=== PATIENT | male | born 1940 | race Caucasian/White ===

== ENCOUNTER 2024-08-30 09:01 | Emergency (ER) | payer MEDICARE, SELFPAY ==
[2024-08-30] VITALS (9 sets, daily range): BP systolic 147–179; BP diastolic 77–105; PULSE 87–102; RESP 17–25; O2SAT 96–97; BMI 27.1
--- NOTE | 2024-08-30 09:07 | DI.RAD.S_ITS ---
PROCEDURE: XR CHEST 1V INDICATIONS: increasing shortness of breath TECHNIQUE: One view of the chest was acquired. COMPARISON: None. FINDINGS: Surgical changes and devices: None. Lungs and pleura: Central pulmonary vascular prominence and interstitial prominence. No trace right pleural effusion.. Mediastinum: Mediastinal contours appear normal. Heart is mildly enlarged. Bones and chest wall: No suspicious bony lesions. Overlying soft tissues appear unremarkable. IMPRESSION: Cardiomegaly with central pulmonary vascular prominence and bilateral lung interstitial prominence concerning for CHF/fluid overload. Dictated by: Vickie Gramajo MD, PhD on 08/30/2024 at 9:29 Approved by: Vickie Gramajo MD, PhD on 08/30/2024 at 9:30
--- NOTE | 2024-08-30 09:07 | EKG_ITS ---
[facility] [address] [place] [address] Test Date: 2024-08-30 Pat Name: Shankar Curry Department: [facility] Room: Gender: Male Sales Intern: ANABELA : 1940 Requested By: Order Number: [id number] Reading MD: Steve Michelle Measurements Intervals [place] Rate: 90 P: 16 NV: 168 QRS: -20 QRSD: 100 T: 19 QT: 422 QTc: 516 Interpretive Statements Normal sinus rhythm Minimal voltage criteria for LVH, may be normal variant ( R in aVL ) Septal infarct , age undetermined Prolonged QT Electronically Signed On 08-30-2024 18:37:02 PST by Steve Michelle
[2024-08-30 09:33] LABS: Add Manual Diff / Slide Review NO; Basophils Absolute Auto 100 /uL (0-100); Basophils Percent Auto 0.8 % (0-2); Eosinophils Absolute Auto 300 /uL (0-450); Eosinophils Percent Auto 3.2 % (2-4); Hematocrit 37.4 % (41-53); Lymphocytes Absolute Auto 1900 /uL (1100-4500); Mean Corpuscular HGB Conc 32.1 % (30-36); Mean Corpuscular Volume 68.6 fL (80-100); Monocytes Absolute Auto 1000 /uL (0-900); Monocytes Percent Auto 10.1 % (3-14); Neutrophils Absolute Auto 6700 /uL (1500-7000); Neutrophils Percent Auto 66.9 % (50-75); Platelet Count 217 X10^3/uL (150-400); Red Blood Cell Count 5.45 X10^6/uL (4.5-5.9); Red Cell Distribution Width 17.9 % (11.6-14.8)
[2024-08-30 09:42] LABS: Alanine Aminotransferase 27 IU/L (<50); Albumin 4.4 g/dL (3.5-5.0); Albumin Globulin Ratio 1.2 (1.0-2.8); Alkaline Phosphatase 82 U/L (38-126); Aspartate Aminotransferase 38 IU/L (17-59); BUN Creatinine Ratio 17.8 (6-22); Bilirubin Total 1.5 mg/dL (0.2-1.3); Blood Urea Nitrogen 16 mg/dL (9-20); Carbon Dioxide 26 mmol/L (22-32); Chloride 104 mmol/L (98-107); Creatine Kinase 42 U/L (55-170); Estimated Glomerular Filt Rate > 60 mL/min (>60); Globulin 3.8 g/dL (1.7-4.1); Glucose 119 mg/dL (80-110); HEMOLYSIS < 15 (0-50); Lipase 133 U/L (23-300); Potassium 3.9 mmol/L (3.4-5.1); Sodium 136 mmol/L (137-145); Total Protein 8.2 g/dL (6.3-8.2)
[2024-08-30 09:53] LABS: Troponin I 0.036 ng/mL (0.01-0.034)
[2024-08-30 09:55] LABS: Microcytosis 3+; Poikilocytosis 1+
--- NOTE | 2024-08-30 10:01 | ED_ITS ---
HPI - General Adult General Chief complaint: Abdominal Pain Stated complaint: Upset stomach; SOB; Fuzzy headed Time Seen by Provider: 08/30/24 09:06 Source: patient Mode of arrival: Family Vehicle History of Present Illness HPI narrative: Patient was an 84-year-old male. Does have history of an enlarged prostate. Is here for evaluation of a proximally 2 weeks of increased upset stomach and abdominal distention. No diarrhea. No constipation. No recent antibiotics. He does urinate frequently but this is baseline for him. He does feel like he is emptying his bladder. He was also reporting shortness of breath that has been going on for the past 2 weeks as well and also reports a ?fuzzy head? feeling that has been going on for several weeks. No chest pain. No cough. He occasionally does have some wheezing. Has a history of high blood pressure. No underlying lung pathology such as COPD or asthma. He was visiting the local area. Related Data Previous Rx's Medication Instructions Recorded furosemide 20 mg tablet (Lasix) 20 mg PO DAILY #30 tabs 08/30/24 Allergies Allergy/AdvReac Type Severity Reaction Status Date / Time Penicillins Allergy Verified 08/30/24 09:19 Review of Systems Review of Systems ROS Unobtainable: All systems reviewed & are unremarkable except as noted in HPI and below Patient History Social History Smoking Status: Never smoker Smoking Status: Never smoker Exam Initial Vital Signs Initial Vital Signs: Vital Signs Pulse Rate 102 H 08/30/24 09:14 Respiratory Rate 20 08/30/24 09:14 Blood Pressure 179/105 H 08/30/24 09:14 Pulse Oximetry 96 08/30/24 09:14 Oxygen Delivery Method Room Air 08/30/24 09:14 Const General: cooperative, comfortable and No ill appearing HENMT Head: normal to inspection and normocephalic Resp Effort & Inspection: normal respiratory effort Auscultation: clear to auscultation bilaterally Cardio Rate: regular rate Rhythm: regular rhythm Skin General: no rashes or lesions noted Neuro General: patient alert, patient awake, patient oriented x3 and moves all extremities Extrem General: capillary refill normal Course Orders Ordered: ED Orders 08/30/24 09:07 XR chest 1V Stat EKG-12 Lead Stat 08/30/24 09:17 Complete Blood Count AUTO DIFF Stat Comprehensive Metabolic Panel Stat Lipase Stat Troponin & CK Cardiac Panel Stat 08/30/24 10:01 CT abdomen pelvis w con Stat 08/30/24 11:09 BNP [NT-proBNP (BNP-Adult 18+)] Stat Troponin & CK Cardiac Panel Stat Vital Signs Vital signs: Vital Signs - 8 hr 08/30/24 09:14 08/30/24 09:15 08/30/24 09:16 Pulse Rate 102 H 101 H Respiratory Rate 20 20 Blood Pressure 179/105 H 179/105 H Pulse Oximetry 96 97 Oxygen Delivery Method Room Air Room Air 08/30/24 09:16 08/30/24 09:30 08/30/24 09:30 Pulse Rate 101 H 93 H Respiratory Rate 24 17 Blood Pressure 154/91 H Pulse Oximetry 97 96 Oxygen Delivery Method Medical Decision Making Lab Data Lab results reviewed: Yes I reviewed the patient's lab results. 08/30/24 09:17 08/30/24 09:17 Labs: Lab Results 08/30/24 08/30/24 Range/Units 09:17 11:09 WBC 10.0 (4.5-11.0) X10^3/uL RBC 5.45 (4.5-5.9) X10^6/uL Hgb 12.0 L (13.5-17.5) g/dL Hct 37.4 L (41-53) % MCV 68.6 L (80-100) fL MCH 22.0 L (26-34) PG MCHC 32.1 (30-36) % RDW 17.9 H (11.6-14.8) % Plt Count 217 (150-400) X10^3/uL Neut % (Auto) 66.9 (50-75) % Lymph % (Auto) 19.0 L (25-40) % [place] % (Auto) 10.1 (3-14) % Eos % (Auto) 3.2 (2-4) % Baso % (Auto) 0.8 (0-2) % Neut # (Auto) 6700 (2266-1183) /uL Lymph # (Auto) 1900 (9251-7941) /uL [place] # (Auto) 1000 H (0-900) /uL Eos # (Auto) 300 (0-450) /uL Baso # (Auto) 100 (0-100) /uL RBC Morphology Not Reportable Poikilocytosis 1+ H Microcytosis 3+ H Sodium 136 L (137-145) mmol/L Potassium 3.9 (3.4-5.1) mmol/L Chloride 104 (98-107) mmol/L Carbon Dioxide 26 (22-32) mmol/L BUN 16 (9-20) mg/dL Creatinine 0.90 (0.66-1.25) mg/dL Estimated GFR > 60 (>60) mL/min BUN/Creatinine Ratio 17.8 (6-22) Glucose 119 H (80-110) mg/dL Calcium 9.0 (8.4-10.2) mg/dL Total Bilirubin 1.5 H (0.2-1.3) mg/dL AST 38 (17-59) IU/L ALT 27 (<50) IU/L Alkaline Phosphatase 82 (38-126) U/L Total Creatine Kinase 42 L 39 L (55-170) U/L Troponin I 0.036 H 0.030 (0.01-0.034) ng/mL NT-Pro-B Natriuret Pep 6110 H (<450) pg/mL Total Protein 8.2 (6.3-8.2) g/dL Albumin 4.4 (3.5-5.0) g/dL Globulin 3.8 (1.7-4.1) g/dL Albumin/Globulin Ratio 1.2 (1.0-2.8) Lipase 133 (23-300) U/L Urine Dip Bedside Urine Glucose Negative Bedside Urine Bilirubin - Negative Bedside Urine Ketone - Negative Urine Specific [place] 1.015 Bedside Urine Occult Blood - Negative Bedside Urine pH 6.0 Bedside Urine Protein - Negative Bedside Urine Urobilinogen - Negative Bedside Urine Nitrite - Negative Bedside Urine Leukocytes - Negative Esterase Point of care testing: Urine Dip Bedside Urine Glucose Negative Bedside Urine Bilirubin - Negative Bedside Urine Ketone - Negative Urine Specific [place] 1.015 Bedside Urine Occult Blood - Negative Bedside Urine pH 6.0 Bedside Urine Protein - Negative Bedside Urine Urobilinogen - Negative Bedside Urine Nitrite - Negative Bedside Urine Leukocytes - Negative Esterase Imaging Data Chest x-ray: Radiologist's Impression: PROCEDURE: XR CHEST 1V INDICATIONS: increasing shortness of breath TECHNIQUE: One view of the chest was acquired. COMPARISON: None. FINDINGS: Surgical changes and devices: None. Lungs and pleura: Central pulmonary vascular prominence and interstitial prominence. No trace right pleural effusion.. Mediastinum: Mediastinal contours appear normal. Heart is mildly enlarged. Bones and chest wall: No suspicious bony lesions. Overlying soft tissues appear unremarkable. IMPRESSION: Cardiomegaly with central pulmonary vascular prominence and bilateral lung interstitial prominence concerning for CHF/fluid overload. CT scan - abdomen/pelvis: Radiologist's Impression: PROCEDURE: CT ABDOMEN PELVIS W CON INDICATIONS: Generalized abdominal pain with distention TECHNIQUE: After the administration of intravenous contrast, axial sections acquired from the lung bases to the pubic symphysis. Coronal and sagittal reformats were performed. For radiation dose reduction, the following was used: automated exposure control, adjustment of mA and/or kV according to patient size. COMPARISON: None. FINDINGS: Image quality: Diagnostic. Lower Chest: Visualized heart is mildly enlarged. Partially visualized small to moderate right and small left pleural effusions. Mild bibasilar lung smooth interlobular septal thickening concerning for pulmonary edema.. ABDOMEN: Liver: No solid mass. Diffuse fatty infiltration of the liver. Gallbladder: Calcified gallstones without gallbladder wall thickening or pericholecystic edema. Biliary ducts: No biliary dilation. Pancreas: No ductal dilation. Spleen: Size is within normal limits. Adrenal Glands: No adrenal nodules. Kidneys and Ureters: No hydronephrosis. No solid mass. No complex renal cystic lesion which requires follow up. Stomach and Bowel: Normal colonic caliber, without significant wall thickening. The appendix is normal. Peritoneum: No abnormal intraperitoneal fluid. No free air. Ventral Wall: No significant ventral hernia. Abdominal Nodes: No retroperitoneal or mesenteric adenopathy by size criteria. Vessels: Aorta and inferior vena cava are normal in size. Scattered atherosclerotic calcifications involving the abdominal and pelvic vasculature. PELVIS: Pelvic Organs: Unremarkable. Bladder: No bladder wall thickening, accounting for underdistention. Pelvic Nodes: No enlarged lymph nodes. Miscellaneous: No inguinal hernias are seen. Bones: Spine degenerative disc disease and facet arthropathy. IMPRESSION: No acute disease process involving the abdomen or pelvis. Hepatic steatosis. Cholelithiasis without CT evidence of cholecystitis. Partially visualized small to moderate right and small left pleural effusions. Mild bibasilar lung interlobular septal thickening concerning for pulmonary edema. ECG Data Attestation: I personally reviewed and interpreted this ECG as follows: Interpretation: Sinus rhythm Ventricular rate 90 Normal axis LVH No ST T wave changes MDM Narrative Medical decision making narrative: Patient does have findings that are consistent with pulmonary edema. The rest of his workup here in the emergency department is relatively unremarkable. Low suspicion for ACS. Not hypoxic. I do think that the patient would benefit from a daily Lasix. A prescription was given for this. We discussed how he should take his weight at home and take the medication as needed depending on how short of breath that he was. Recommended that he contact his primary care doctor for a follow-up. He was given return precautions. He expressed understanding and agreement. Discharge Plan Departure Patient Disposition: Home Clinical Impression: Pulmonary edema Instructions: How to Manage Shortness of Breath Activity Restrictions/Additional Instructions: I do recommend that you continue to take all of your medications as directed. Take the Lasix on a daily basis like we discussed. Taking a daily weight can be helpful as well. When you return home I recommend follow up with your primary care doctor to discuss the indications for an echocardiogram. Return to the emergency department for new symptoms. Prescriptions: New furosemide [Lasix] 20 mg tablet 20 mg PO DAILY Qty: 30 0RF Stand Alone Forms: Patient Portal/API/Survey
[2024-08-30 11:37] LABS: Creatine Kinase 39 U/L (55-170)
[2024-08-30 11:48] LABS: NT-proBNP (BNP-Adult 18+) 6110 pg/mL (<450)
== END 2024-08-30 12:15 | disposition home or self-care (01) ==
PROVIDERS: Emergency Provider Emergency Medicine
DX: J81.1 Chronic pulmonary edema (principal); R14.0 Abdominal distension (gaseous)
CPT/HCPCS: 36415; 71045; 74177; 80053; 81003; 82550; 83690; 83880; 84484; 85025; 93005; 99284; Q9967